=== PATIENT | female | born 1945 | race Caucasian/White ===

== ENCOUNTER 2020-10-09 07:27 | Day surgery (SDC) | payer OTHER | END 2020-10-09 13:45 | disposition home or self-care (01) | LOC: AMB-ENDOS 07:27 | PROVIDERS: ATTEND Surgery | DX: D12.0 Benign neoplasm of cecum (principal); D12.3 Benign neoplasm of transverse colon; K64.8 Other hemorrhoids; Z20.822 Contact with and (suspected) exposure to COVID-19 ==